=== PATIENT | female | born 1945 | race Caucasian/White ===

== ENCOUNTER 2017-07-25 01:16 | Emergency (ER) | payer MEDICARE ==
[~2017-07-25] VITALS: Ht 167.6 cm; Wt 78.0 kg
[2017-07-25 01:21] VITALS: BP 193/92; PULSE 68; RESP 18; TEMP 97.9; O2SAT 96
[2017-07-25 01:39] VITALS: BP 147/91; PULSE 66; RESP 16; O2SAT 96
[2017-07-25] MEDS ORDERED: LEVO112T2 PO (01:39)
[2017-07-25] MEDS ORDERED: LOSA25TA PO (01:39)
[2017-07-25] MEDS ORDERED: KETOROLAC TROMETHAMINE 30 MG/ML (IVP) VIAL IV PUSH ONE (02:45)
[2017-07-25] MEDS ORDERED: DEXAMETHASONE SOD PHOS 4 MG/ML VIAL IV PUSH ONE (02:45)
--- NOTE | 2017-07-25 03:22 | RADRPT ---
EXAM DATE/TIME: 07/25/2017 02:57 [place] COMPARISON: No previous studies available for comparison. INDICATIONS : Neck pain radiating down right arm x 2 days. RADIATION DOSE: 26.39 CTDIvol (mGy) MEDICAL HISTORY : Hypertension. SURGICAL HISTORY : None. ENCOUNTER: Initial ACUITY: 2 days PAIN SCALE: 3/10 LOCATION: neck TECHNIQUE: Volumetric scanning of the cervical spine was performed. Multiplanar reconstructions in the sagittal, coronal and oblique axial planes were performed. Using automated exposure control and adjustment o f the mA and/or kV according to patient size, radiation dose was kept as low as reasonably achievable to obtain optimal diagnostic quality images. DICOM format image data is available electronically f or review and comparison. FINDINGS: CT of the cervical spine was performed in sagittal and axial planes. There is straightening of the no rmal cervical lordosis which may be secondary positioning or spasm. No focal areas of marrow replacem ent are identified. The craniocervical junction appears normal. Axial images were performed from C2-C 3 through C7-T1. There is multilevel disc space narrowing and marginal osteophyte formation maximal a t C5-C6. C2-C3: There is mild annular bulge of the disc. There is mild facet arthritis on the left. C3-C4: A small central protrusion is present impinging on the thecal sac but not significantly deforming the cord. There is uncovertebral joint hypertrophy on left side. There is moderate neural foraminal narr owing on the left. C4-C5: There is mild annular bulge of the disc. There is severe facet arthritis bilaterally. There is mild l eft sided neural foraminal narrowing. C5-C6: There is osteophytic ridging along the posterior aspect of vertebral body. There is uncovertebral theresa nt hypertrophy bilaterally. There is mild neural foraminal narrowing bilaterally. C6-C7: There is osteophytic ridging along the posterior aspect of vertebral body. There is no significant sp inal canal stenosis. C7-T1: There is no evidence of disc protrusion or spinal canal stenosis. There is mild facet arthritis on th e left. CONCLUSION: 1. Moderate degenerative changes as described above. There is no evidence of acute fracture. Lloyd Rodriguez MD on July 25, 2017 at 3:18 Board Certified Radiologist. This report was verified electronically.
[2017-07-25 03:26] VITALS: BP 151/91; PULSE 61; RESP 18; O2SAT 95
[2017-07-25 03:27] LABS: AUTOMATED NEUTROPHIL # 6.4 TH/MM3 (1.8-7.7); BASOPHIL % 0.2 % (0.0-2.0); EOSINOPHIL # 0.3 TH/MM3 (0-0.4); EOSINOPHIL % 3.3 % (0.0-4.0); HEMATOCRIT 41.5 % (35.0-46.0); HEMO FLAGS DIFF FINAL; LYMPH % 25.4 % (9.0-44.0); LYMPHOCYTE # 2.4 TH/MM3 (1.0-4.8); MEAN CELL VOLUME 88.8 FL (80.0-100.0); MEAN CORPUSCULAR HEMOGLOBIN 29.5 PG (27.0-34.0); MEAN CORPUSCULAR HGB CONC 33.2 % (32.0-36.0); NEUT % 66.1 % (16.0-70.0); PLATELET COUNT 310 TH/MM3 (150-450); RED BLOOD COUNT 4.67 MIL/MM3 (4.00-5.30); RED CELL DISTRIBUTION WIDTH 12.8 % (11.6-17.2); WHITE BLOOD COUNT 9.6 TH/MM3 (4.0-11.0)
[2017-07-25 03:34] LABS: CHLORIDE 102 MEQ/L (98-107); POTASSIUM 3.5 MEQ/L (3.5-5.1); SODIUM (NA) 139 MEQ/L (136-145)
[2017-07-25 03:37] LABS: ANION GAP 7 MEQ/L (5-15); BICARBONATE 29.6 MEQ/L (21.0-32.0); BLOOD UREA NITROGEN 21 MG/DL (7-18)
[2017-07-25 03:40] LABS: GLOMERULAR FILTRATION RATE 69 ML/MIN (>89)
[2017-07-25 04:22] VITALS: RESP 16
--- NOTE | 2017-07-25 04:32 | PD ---
HPI Chief Complaint: Pain: Acute or Chronic Time Seen by Provider: 02:44 Travel History International Travel<30 days: No Contact w/Intl Traveler<30days: No Traveled to known affect area: No History of Present Illness HPI 71-year-old female presents to the emergency department by private transportation for evaluation of posterior neck pain with soreness at the base of her neck causing tingling in her right arm with palpation of the posterior neck or with range of motion of the neck. Patient denies any injury or fall. Patient's had no fever or chills. Patient denies any chest pain or shortness of breath. Patient does have history of hypertension and hypothyroidism. Patient denies dyslipidemia diabetes tobacco use or CAD. Patient's had no dizziness no change in mentation no visual disturbance no double vision or loss of vision no change in her speech no confusion patient denies any new upper or lower extremity weakness and intermittent tingling of the extremity is only with palpation of the posterior neck or with range of motion of the neck. Patient states neck pain worsens when she tries to sleep as she sleeps on her stomach was encouraged to turn her head to the side sleeping patient states this evening because of the irritation of her neck she couldn't sleep so she decided to come to the emergency room for evaluation. He should states that she did take melatonin but did not try any acetaminophen or ibuprofen this evening which she normally takes for pain associated with inflammation. Patient states symptoms of present for the past 2 days. Patient rates discomfort in the midline posterior lower neck as 5-6/10 and reproducible finger point tender to palpation, "it feels swollen". PFSH Past Medical History Narrative Medical Hypertension hypothyroidism; no tobacco use: Nursing notes reviewed Hypertension: Yes Thyroid Disease: Yes (hypo) Tetanus Vaccination: < 5 Years Influenza Vaccination: No Past Surgical History Surgical History: No Previous Surgery Social History Alcohol Use: Yes (rarely) Tobacco Use: No Substance Use: No Allergies-Medications (Allergen,Severity, Reaction): Coded Allergies: AMRIT Inhibitors (Verified Allergy, Severe, Hives, 07/25/17) Reported Meds & Prescriptions Reported Meds & Active Scripts Active Reported Levothyroxine (Levothyroxine Sodium) 112 Mcg Tab 112 Mcg PO DAILY Losartan (Losartan Potassium) 25 Mg Tab 12.5 Mg PO DAILY Review of Systems Except as stated in HPI: all other systems reviewed are Neg General / Constitutional: No: Fever, Chills HENT: Positive: Neck Pain (posterior lower right side of neck), No: Congestion Cardiovascular: No: Chest Pain or Discomfort, Palpitations, Diaphoresis, Syncope, Dyspnea on exertion, Edema Respiratory: No: Cough, Shortness of Breath, Pleuritic Pain Gastrointestinal: No: Nausea, Vomiting, Abdominal Pain Genitourinary: No: Flank Pain Musculoskeletal: Positive: Pain (right lower posterior neck), No: Limited ROM, Weakness Skin: No Rash, No Hives Neurologic: Positive: Paresthesia (intermittent right upper extremity none at this time; with palpation of the right lower posterior neck or on range of motion of the neck and trapezius area), No: Weakness, Dizziness, Syncope, Focal Abnormalities, Coordination Problem, Headache, Change in Mentation, Slurred Speech Psychiatric: No: Anxiety, Depression Endocrine: No: Heat Intolerance Hematologic/Lymphatic: No: Easy Bruising Physical Exam Narrative GENERAL: Well-developed well-nourished female in no acute distress no respiratory distress; GCS 15 SKIN: Warm and dry. HEAD: Atraumatic. Normocephalic. EYES: Pupils equal and round. No scleral icterus. No injection or drainage. ENT: No nasal bleeding or discharge. Mucous membranes pink and moist. NECK: Trachea midline. No JVD. Supple tender to palpation in the lower midline of the cervical spine to palpation and point tender to the right lower cervical spine without bony step-off and no induration or fluctuance increased warmth or redness at the site some tenderness of the right trapezius musculature causes increased discomfort into the right upper extremity. CARDIOVASCULAR: Regular rate and rhythm. RESPIRATORY: No accessory muscle use. Clear to auscultation. Breath sounds equal bilaterally. GASTROINTESTINAL: Abdomen soft, non-tender, nondistended. Hepatic and splenic margins not palpable. MUSCULOSKELETAL: Extremities without clubbing, cyanosis, or edema. No obvious deformities. Right upper extremity demonstrates full range of motion without limitation at the shoulder or elbow wrist and digits with brisk capillary refill less than 2 seconds per digit thumb apposition intact radial and normal pulses 2+ to palpation. NEUROLOGICAL: Awake and alert. No obvious cranial nerve deficits. Motor grossly within normal limits. Five out of 5 muscle strength in the arms and legs. 5 over 5 motor strength bilateral upper extremities and lower extremity hand i tube bender strength 5 over 5 Normal speech. PSYCHIATRIC: Appropriate mood and affect; insight and judgment normal. Data Data Last Documented VS Vital Signs Date Time Temp Pulse Resp B/P (MAP) Pulse Ox O2 Delivery O2 Flow Rate FiO2 07/25/17 04:22 16 07/25/17 03:26 61 151/91 (111) 95 07/25/17 01:[address] Cerv Spine W/O Contrast (07/25/17 ) Complete Blood Count With Diff (07/25/17 02:44) Basic Metabolic Panel (Bmp) (07/25/17 02:44) Troponin I (07/25/17 02:44) Electrocardiogram (07/25/17 ) Ketorolac Inj (Toradol Inj) (07/25/17 02:45) Dexamethasone Inj (Decadron Inj) (07/25/17 02:45) Labs Laboratory Tests Test 07/25/17 03:17 White Blood Count 9.6 TH/MM3 Red Blood Count 4.67 MIL/MM3 Hemoglobin 13.8 GM/DL Hematocrit 41.5 % Mean Corpuscular Volume 88.8 FL Mean Corpuscular Hemoglobin 29.5 PG Mean Corpuscular Hemoglobin Concent 33.2 % Red Cell Distribution Width 12.8 % Platelet Count 310 TH/MM3 Mean Platelet Volume 7.5 FL Neutrophils (%) (Auto) 66.1 % Lymphocytes (%) (Auto) 25.4 % Monocytes (%) (Auto) 5.0 % Eosinophils (%) (Auto) 3.3 % Basophils (%) (Auto) 0.2 % Neutrophils # (Auto) 6.4 TH/MM3 Lymphocytes # (Auto) 2.4 TH/MM3 Monocytes # (Auto) 0.5 TH/MM3 Eosinophils # (Auto) 0.3 TH/MM3 Basophils # (Auto) 0.0 TH/MM3 CBC Comment DIFF FINAL Differential Comment Blood Urea Nitrogen 21 MG/DL Creatinine 0.82 MG/DL Random Glucose 110 MG/DL Calcium Level 8.8 MG/DL Sodium Level 139 MEQ/L Potassium Level 3.5 MEQ/L Chloride Level 102 MEQ/L Carbon Dioxide Level 29.6 MEQ/L Anion Gap 7 MEQ/L Estimat Glomerular Filtration Rate 69 ML/MIN Troponin I LESS THAN 0.02 NG/ML MDM Medical Decision Making Medical Screen Exam Complete: Yes Emergency Medical Condition: Yes Medical Record Reviewed: Yes Interpretation(s) EKG: sinus bradycardia rate 58 left axis deviation with incomplete right bundle branch block age indeterminate poor R-wave progression anteroseptally without any acute ST segment elevation or reciprocal changes Vital Signs Date Time Temp Pulse Resp B/P (MAP) Pulse Ox O2 Delivery O2 Flow Rate FiO2 07/25/17 03:26 61 18 151/91 (111) 95 07/25/17 01:39 66 16 147/91 (109) 96 07/25/17 01:21 97.9 68 18 193/92 (125) 96 CBC & BMP Diagram 07/25/17 03:[address] cerv spine: FINDINGS: CT of the cervical spine was performed in sagittal and axial planes. There is straightening of the normal cervical lordosis which may be secondary positioning or spasm. No focal areas of marrow replacement are identified. The craniocervical junction appears normal. Axial images were performed from C2-C3 through C7-T1. There is multilevel disc space narrowing and marginal osteophyte formation maximal at C5-C6. C2-C3: There is mild annular bulge of the disc. There is mild facet arthritis on the left. C3-C4: A small central protrusion is present impinging on the thecal sac but not significantly deforming the cord. There is uncovertebral joint hypertrophy on left side. There is moderate neural foraminal narrowing on the left. C4-C5: There is mild annular bulge of the disc. There is severe facet arthritis bilaterally. There is mild left sided neural foraminal narrowing. C5-C6: There is osteophytic ridging along the posterior aspect of vertebral body. There is uncovertebral joint hypertrophy bilaterally. There is mild neural foraminal narrowing bilaterally. C6-C7: There is osteophytic ridging along the posterior aspect of vertebral body. There is no significant spinal canal stenosis. C7-T1: There is no evidence of disc protrusion or spinal canal stenosis. There is mild facet arthritis on the left. CONCLUSION: 1. Moderate degenerative changes as described above. There is no evidence of acute fracture. Lloyd Rodriguez MD on July 25, 2017 at 3:18 Board Certified Radiologist. This report was verified electronically. Differential Diagnosis Cervical radiculopathy, HNP, degenerative disc disease, atypical chest pain Narrative Course IV access obtained EKG performed shows sinus bradycardia age-indeterminate poor R progression V1 through V4 without acute injury pattern changed no ST elevation or ectopy CBC is automated differential chemistries within normal range and troponin I less than 0.02 signed patient given an injection of Toradol 30 mg IV Patient received dose of Decadron 8 mg IV For 30 patient noted symptoms improved imaging results show significant degenerative and arthritic changes of the cervical spine and central disc protrusion without cord impingement at C3 4 Diagnosis Primary Impression: Cervical radiculopathy due to degenerative joint disease of spine Referrals: Primary Care Physician call for appointment Patient Instructions: General Instructions Additional Instructions: Apply moist heat to the upper back and lower neck area for comfort May use acetaminophen/Tylenol as needed for minor pain less than 5/10 in intensity; recommend completion of steroid tapering Dosepak for inflammatory pain may use pain medication as prescribed as needed for pain greater than 6/10 in intensity be aware that narcotic pain medication may cut his drowsiness impaired judgment and increased risk for fall and cause constipation so use with caution Return to the emergency for any concerns or change in condition Continue chronic medications as chronically prescribed Follow-up with primary care provider call office to schedule follow-up appointment Med/Other Pt SpecificInfo: Prescription(s) given Scripts Oxycodone-Acetaminophen (Percocet) 5-325 mg Tab 0.5-1 TAB PO Q6H Y for PAIN, #7 TAB 0 Refills Prov: Bren Acosta MD 07/25/17 Methylprednisolone Dosepak (Medrol Dosepak) 4 Mg Dspk 4 MG PO DIRECTED, #1 DSPK 0 Refills Per Pharmacist direction Prov: Bren Acosta MD 07/25/17 Bren Acosta MD Jul 25, 2017 04:32
[2017-07-25] MEDS ORDERED: PERC5TAB12 PO (04:34)
[2017-07-25] MEDS ORDERED: MEDR4PAK PO (04:34)
[2017-07-25 04:51] VITALS: BP 150/90
--- NOTE | 2017-07-25 13:11 | EKG ---
Date Performed: 07/25/2017 Time Performed: 02:54:28 PTAGE: 71 years EKG: SINUS BRADYCARDIA MARKED LEFT AXIS DEVIATION INCOMPLETE RIGHT BUNDLE BRANCH BLOCK POSSIBLE ANTERIOR MYOCARDIAL INFARCTION ABNORMAL ECG NO PREVIOUS TRACING DOCTOR: Festus Dennison Interpretating Date/Time 07/25/2017 13:10:17
== END 2017-07-25 05:06 | disposition home or self-care (01) ==
LOC: PHED 01:16
DX: M54.12 Radiculopathy, cervical region (principal); I10 Essential (primary) hypertension; E03.9 Hypothyroidism, unspecified; R00.1 Bradycardia, unspecified
CPT/HCPCS: 72125; 80048; 84484; 85025; 93005; 96374; 96375; 99285; J1100; J1885